=== PATIENT | female | born 1955 | race African-American/Black ===

== ENCOUNTER 2017-06-18 16:18 | Emergency (ER) | payer MEDICAID, OTHER ==
[~2017-06-18] VITALS: Ht 167.6 cm; Wt 65.8 kg
[~2017-06-18 16:18] MED LIST: LISINOPRIL10 MG ORAL; OMEPRAZOLE20 M3 ORAL; PRAVASTATIN SOD20 M1 PO; TACTINAL500 M1 PO
[2017-06-18] MEDS ORDERED: LOSARTAN POTASS25 MG ORAL (16:31)
[2017-06-18] MEDS ORDERED: DICLOFENAC SODI75 MG ORAL (16:31)
[2017-06-18] MEDS ORDERED: BACLOFEN10 MG ORAL (16:31)
[2017-06-18] MEDS ORDERED: ASPIR 8181 MG ORAL (16:31)
[2017-06-18 17:08] LABS: BASOPHILS % (AUTO) 1.4 % (0.0-2.0); EOSINOPHILS % (AUTO) 0.5 % (0.0-3.0); LYMPHOCYTES % (AUTO) 20.9 % (20.0-45.0); MEAN CORPUSCULAR HEMOGLOBIN 25.7 PG (27.0-31.0); MEAN CORPUSCULAR HGB CONC 30.7 G/DL (32.0-36.0); MEAN CORPUSCULAR VOLUME 84 FL (80-99); MEAN PLATELET VOLUME 6.2 FL (6.5-10.1); MONOCYTES % (AUTO) 8.2 % (1.0-10.0); PLATELET COUNT 267 K/UL (150-450); RED CELL DISTRIBUTION WIDTH 13.7 % (11.6-14.8); WHITE BLOOD COUNT 4.6 K/UL (4.8-10.8)
--- NOTE | 2017-06-18 17:21 | Emergency Room Report ---
History of Present Illness General Chief Complaint: Chest Pain Source: Patient Present Illness HPI [id number] walk-in with 1 month of chest pain Described as intermittent sharp pain Also under a lot of stress from 's recent passing Loves "spicy food" and drinks decaf coffee daily Has omeprazole for "heartfburn" Was told by PMD she has "a large heart." has paperwork for her to get outpatient EKG Compliant with statin, daily ASA, HTN med Exercises a lot - "runs, bikes, yoga" every day. Considers herself very healthy Allergies: Coded Allergies: HYDROMORPHONE (Verified Allergy, Unknown, 01/30/09) Patient History Past Medical History: other - HTN, HLD, acid r eflux Past Surgical History: other - Multiple "breast" surgeries Pertinent Family History: none Social History: Denies: alcohol use, drug use, smoking Now: No Immunizations: UTD Reviewed Nursing Documentation: PMH: Agreed, PSxH: Agreed Nursing Documentation-PMH Hx Cardiac Problems: Yes Hx Hypertension: Yes Hx Cerebrovascular Accident: No - RA Review of Systems All Other Systems: negative except mentioned in HPI Physical Exam Vital Signs Date Time Temp Pulse Resp B/P Pulse Ox O2 Delivery O2 Flow Rate FiO2 06/18/17 16:21 98.1 76 20 134/77 98 Room Air Sp02 EP Interpretation: reviewed, normal General Appearance: normal inspection, well appearing, no apparent distress, alert, GCS 15, non-toxic Head: normocephalic, atraumatic Eyes: bilateral eye EOMI, bilateral eye PERRL ENT: normal ENT inspection, hearing grossly normal, normal voice Neck: normal inspection, full range of motion, supple, no bony tend Respiratory: normal inspection, lungs clear, normal breath sounds, no respiratory distress, no retraction, no wheezing Cardiovascular #1: regular rate, rhythm, no edema Gastrointestinal: normal inspection, normal bowel sounds, non tender, soft, no guarding, no hernia Genitourinary: no CVA tenderness Musculoskeletal: normal inspection, back normal, normal range of motion, Linsey' s Sign negative Neurologic: normal inspection, alert, oriented x3, responsive, barrel header III-XII nml as tested, motor strength/tone normal, speech normal Psychiatric: normal inspection, judgement/insight normal, mood/affect normal Skin: normal inspection, normal color, no rash Lymphatic: normal inspection Medical Decision Making Diagnostic Impression: Primary Impression: Chest pain Qualified Codes: R07.9 - Chest pain, unspecified Additional Impressions: IDANIA (acute kidney injury) Rhabdomyolysis Qualified Codes: M62.82 - Rhabdomyolysis ER Course Chest pain for 1 month VSS. Afebrile NSR, no ischemia Labs: No leuks. H&h stable. Troponin 0. CXR: no obvious cardiomegaly Mild IDANIA and mild rhabdo. IVF NS given Low suspicion for ACS given 1 month symptoms, known history of heartburn/reflux , no asthma/COPD, no wheezing on exam and heartburn more likely Dx at this time Advised PMD followup for Echo EKG Diagnostic Results Rate: normal Rhythm: NSR ST Segments: no acute changes ASA given to the pt in ED: No Rhythm Strip Diag. Results EP Interpretation: yes Rate: 73 Rhythm: NSR, no PVC's, no ectopy Chest X-Ray Diagnostic Results Chest X-Ray Diagnostic Results : Chest X-Ray Ordered: Yes # of Views/Limited/Complete: 1 View Indication: Chest Pain EP Interpretation: Yes Interpretation: no consolidation, no effusion, no pneumothorax, no acute cardiopulmonary disease Impression: No acute disease Interpreting ER Provider: Dr Evy Rosenberg MD Last Vital Signs Date Time Temp Pulse Resp B/P Pulse Ox O2 Delivery O2 Flow Rate FiO2 06/18/17 16:30 74 16 Room Air 06/18/17 16:21 98.1 134/77 98 Status: improved Disposition: HOME, SELF-CARE EVY ROSENBERG M.D. Jun 18, 2017 17:21
[2017-06-18 17:51] LABS: ALANINE AMINOTRANSFERASE 21 U/L (3-33); ALBUMIN/GLOBULIN RATIO 2.5 (1.0-2.7); ANION GAP 13 (5-15); ASPARTATE AMINO TRANSFERASE 37 U/L (5-40); CALCIUM 9.4 mg/dL (8.6-10.2); CARBON DIOXIDE 26 mEQ/L (20-30); CHLORIDE 102 mEQ/L (98-107); CREATININE 1.1 mg/dL (0.5-0.9); GLOMERULAR FILTRATION RATE > 60 mL/min (>60); HEMOLYSIS 1; POTASSIUM 4.2 mEQ/L (3.4-4.9); SODIUM 141 mEQ/L (135-145); TOTAL PROTEIN 7.9 g/dL (6.6-8.7)
[2017-06-18 17:56] LABS: TROPONIN I < 0.30 ng/mL (<=0.30)
[2017-06-18 18:01] LABS: CKMB 2.8 ng/mL (< 3.8)
[2017-06-18 18:11] VITALS: BP 131/84
[2017-06-18] MEDS ORDERED: PEPCID20 MG ORAL (18:23)
[2017-06-18 19:45] VITALS: BP 130/85
--- NOTE | 2017-06-19 10:33 | Diagnostic Imaging Report ---
Indication: SOB Technique: One view of the chest Comparison: 05/17/2011 Findings: There is persistent elevation right hemidiaphragm. Bilateral costophrenic angle blunting appears similar to previous study, likely chronic but small effusion not excluded. The heart size is normal. Impression: Probably chronic right pleural thickening, small effusion not excludable. No acute process otherwise
--- NOTE | 2017-06-21 17:19 | Cardiology Report ---
APPROVED REPORT EKG Measurement Heart [id number] Normal sinus rhythm Possible Left atrial enlargement Borderline ECG
== END 2017-06-18 19:45 | disposition home or self-care (01) ==
LOC: EMR 17:32
DX: R07.9 Chest pain, unspecified (principal); N17.9 Acute kidney failure, unspecified; M62.82 Rhabdomyolysis; I10 Essential (primary) hypertension; E78.5 Hyperlipidemia, unspecified; K21.9 Gastro-esophageal reflux disease without esophagitis; Z79.82 Long term (current) use of aspirin; Z79.899 Other long term (current) drug therapy
CPT/HCPCS: 36415; 71010; 80053; 82550; 82553; 83880; 84484; 85025; 93005; 96360; 96374; 99284

== ENCOUNTER 2018-02-12 18:00 | Emergency (ER) | payer OTHER ==
[~2018-02-12] VITALS: Ht 167.6 cm; Wt 66.7 kg
[~2018-02-12 18:00] MED LIST changes: +ASPIR 8181 MG ORAL; +BACLOFEN10 MG ORAL; +DICLOFENAC SODI75 MG ORAL; +LOSARTAN POTASS25 MG ORAL; +PEPCID20 MG ORAL
[2018-02-12 18:42] VITALS: BP 109/73
--- NOTE | 2018-02-12 18:44 | Emergency Room Report ---
History of Present Illness General Chief Complaint: Lower Back Pain or Injury Source: Patient Present Illness HPI 63-year-old female p/w back pain for 4 days. Patient states pain started when she slipped and fell in her bathroom floor and hit her back on the doorknob. Pain is localized to bilateral lower back, sharp in nature. Movement worsens pain. There are no alleviating factors. Patient went to an outside hospital does not know the name and they took x-rays and they discharged her with pain medication Denies lower extremity weakness/numbness, no bowel/bladder retention or incontinence, saddle anesthesia. Denies fever, chills, abdominal pain, n/v, dysuria/hematuria. Allergies: Coded Allergies: HYDROMORPHONE (Verified Allergy, Unknown, 01/30/09) Patient History Past Medical History: see triage record Past Surgical History: none Pertinent Family History: none Reviewed Nursing Documentation: PMH: Agreed; PSxH: Agreed Nursing Documentation-PMH Past Medical History: No History, Except For Hx Cardiac Problems: Yes Hx Hypertension: Yes Hx Cerebrovascular Accident: No - RA Review of Systems All Other Systems: negative except mentioned in HPI Physical Exam Vital Signs Date Time Temp Pulse Resp B/P (MAP) Pulse Ox O2 Delivery O2 Flow Rate FiO2 02/12/18 18:10 97.9 90 22 109/73 97 Room Air 97.9 Sp02 EP Interpretation: reviewed, normal General Appearance: alert, GCS 15, non-toxic, moderate distress Head: normocephalic, atraumatic Eyes: bilateral eye normal inspection, bilateral eye PERRL, bilateral eye EOMI ENT: normal ENT inspection, normal pharynx, normal voice, moist mucus membranes Neck: normal inspection, full range of motion, supple Respiratory: normal inspection, lungs clear, normal breath sounds, no respiratory distress, no retraction, no wheezing, speaking full sentences, chest symmetrical Cardiovascular #1: normal inspection, regular rate, rhythm, normal capillary refill Cardiovascular #2: 2+ radial (R), 2+ radial (L) Gastrointestinal: normal inspection, non tender, soft, non-distended, no guarding Musculoskeletal: other - No midline tenderness, paraspinal midthoracic and lumbar tenderness, no step-offs, full range of motion all extremities. Patient has a brace that she borrowed from her friend around her waist Neurologic: normal inspection, alert, oriented x3, responsive, motor strength/ tone normal, sensory intact, normal gait, speech normal Psychiatric: normal inspection, judgement/insight normal, memory normal Skin: normal inspection, normal color, no rash, warm/dry, well hydrated, normal turgor Medical Decision Making Diagnostic Impression: Primary Impression: Low back pain ER Course 63-year-old female p/w back pain after fall 4 days ago DDX: Likely musculoskeletal back pain vs. muscular strain vs. sciatica Versus fracture Serious diagnoses such as cord compression, cauda equina is unlikely in this patient given the clinical scenario and absence of neurological symptoms or findings. Patient appears nontoxic. Plan: Motrin, robaxin CT of T and L-spine ER course: Patient has remained nontoxic appearing and ambulatory in the ED. Pain improved w/ medications Disposition: Patient will be discharged to home Strict precautions discussed with patient on when to emergently return to the ED which includes severe/worsening back pain, leg weakness/numbness, urinary retention/incontinence, fever or chills, which may indicate severe illness. Patient is to follow up with their PMD within 5 days. Patient agrees with plan. Please note that this Emergency Department Report was dictated using [employer] organizational development technology software, occasionally this can lead to erroneous entry secondary to interpretation by the dictation equipment. CT/MRI/US Diagnostic Results CT/MRI/US Diagnostic Results : Imaging Test Ordered: CT L AND T SPINE Impression CT L SPINE: No acute fracture or malalignment. Advanced degenerative changes of the lower lumbar spine. CT T SPINE: No acute fracture or malalignment. Mild degenerative changes. Nonspecific right pleural nodularity. Last Vital Signs Date Time Temp Pulse Resp B/P (MAP) Pulse Ox O2 Delivery O2 Flow Rate FiO2 02/12/18 18:10 97.9 90 22 109/73 97 Room Air 97.9 Disposition: HOME, SELF-CARE Condition: Improved Scripts Ibuprofen* (MOTRIN*) 600 Mg Tablet 600 MG ORAL Q8H PRN for For Pain, #30 TAB 0 Refills Prov: Ayaka Hadley M.D. 02/12/18 Methocarbamol* (ROBAXIN-750*) 750 Mg Tablet 750 MG PO QID, #28 TAB 0 Refills Prov: Ayaka Hadley M.D. 02/12/18 Ayaka Hadley M.D. Feb 12, 2018 18:43
[2018-02-12] MEDS ORDERED: Methocarbamol 750mg tab ORAL ONE (18:45)
[2018-02-12] MEDS ORDERED: Ketorolac 30mg Inj IM ONE (18:45)
[2018-02-12 19:05] VITALS: BP 112/80
[2018-02-12] MEDS ORDERED: ROBAXIN-750750 MG PO (19:52)
[2018-02-12] MEDS ORDERED: IBUPROFEN600 MG ORAL (19:52)
[2018-02-12 20:00] VITALS: BP 120/78
[2018-02-12 20:15] VITALS: BP 120/78
--- NOTE | 2018-02-13 08:36 | Diagnostic Imaging Report ---
Indication: Pain status post fall Technique: CT lumbar spine was performed utilizing automated exposure control without intravenous contrast material. Axial and sagittal and coronal images were generated. CT dose: Total DLP 429.03 mGycm; CTDI vol 13.01 mGy Comparison: None Findings: There are 5 nonrib-bearing lumbar-type vertebral bodies. There is no evidence of acute fracture or traumatic malalignment. There are multilevel degenerative changes of the lumbar spine manifested by disc space narrowing, endplate sclerosis/cystic change, facet arthropathy and productive change/disc osteophyte complexes. These findings are most pronounced at L3-L4 and L4-L5. There is a degree of associated central canal stenosis and foraminal narrowing at these levels. Please note that the cord and nerve roots are better evaluated on MRI, which can be obtained as clinically indicated for further evaluation. Abdominal aorta is normal in caliber with mild atherosclerotic calcification. Multiple surgical clips are noted in the right iliac region. Correlation with surgical history is recommended. IMPRESSION: No evidence of acute fracture or traumatic malalignment. Degenerative change of the lumbar spine most pronounced at L3-L4 and L4-L5. MRI of the lumbar spine recommended as clinically indicated for better evaluation. Additional findings as above. This corresponds with the statrad preliminary report. The CT scanner at [facility] is accredited by the [employer] and the scans are performed using protocols designed to limit radiation exposure to as low as reasonably achievable to attain images of sufficient resolution adequate for diagnostic evaluation.
--- NOTE | 2018-02-13 08:42 | Diagnostic Imaging Report ---
Indication: Pain status post fall Technique: CT thoracic spine was performed utilizing automated exposure control without intravenous contrast material. Axial and sagittal and coronal images were generated. CT dose: Total DLP 681.12 mGycm; CTDI vol 18.11 mGy Comparison: None Findings: There is no evidence of acute fracture or traumatic malalignment. There are mild multilevel degenerative changes of the thoracic spine manifested by disc space narrowing, endplate subchondral sclerosis/cystic change and productive change. Visualized aorta appears normal in caliber. Question cholelithiasis, partially visualized. There is nonspecific pleural nodularity on the right. IMPRESSION: Mild multilevel degenerative change of the thoracic spine. No evidence of acute fracture or traumatic malalignment. Nonspecific right pleural nodularity. Clinical correlation/follow-up exam recommended. Question possible cholelithiasis. The CT scanner at [facility] is accredited by the [employer] and the scans are performed using protocols designed to limit radiation exposure to as low as reasonably achievable to attain images of sufficient resolution adequate for diagnostic evaluation.
== END 2018-02-12 20:15 | disposition home or self-care (01) ==
LOC: EMR 18:53
DX: M54.5 Low back pain (principal); W01.198A Fall on same level from slipping, tripping and stumbling with subsequent striking against other object, initial encounter; Y92.002 Bathroom of unspecified non-institutional (private) residence as the place of occurrence of the external cause; I10 Essential (primary) hypertension
CPT/HCPCS: 72128; 72131; 96372; 99284; J1885

== ENCOUNTER 2018-02-27 16:57 | Emergency (ER) | payer OTHER ==
[~2018-02-27] VITALS: Ht 167.6 cm; Wt 66.2 kg
[~2018-02-27 16:57] MED LIST changes: +IBUPROFEN600 MG ORAL; +ROBAXIN-750750 MG PO
[2018-02-27 17:43] VITALS: BP 127/71
[2018-02-27] MEDS ORDERED: Lidocaine 1% Plain 30 ml INJ ONE (19:00)
[2018-02-27] MEDS ORDERED: IBUPROFEN600 MG ORAL (19:43)
[2018-02-27 19:55] VITALS: BP 124/83
[2018-02-27 19:57] VITALS: BP 124/83
--- NOTE | 2018-02-28 11:14 | Diagnostic Imaging Report ---
Indication: Pain Knee pain/trauma 3 views of the right knee were obtained. Findings: No acute fracture, malalignment, or joint effusion are identified. Joint space is relatively well-maintained. Impression: Negative for acute findings.
--- NOTE | 2018-02-28 11:14 | Diagnostic Imaging Report ---
Indication: Pain 3 views of the left knee were obtained. Findings: No acute fracture, malalignment, or joint effusion are identified. Joint space is relatively well-maintained. Impression: Negative for acute injury
--- NOTE | 2018-02-28 11:15 | Diagnostic Imaging Report ---
Indication: Pain right ankle ankle pain/trauma Comparison: None Findings: 3 views of the right ankle obtained. No acute fracture, malalignment, periostitis, or osteochondral defects are identified. Soft tissues are unremarkable. There is a tiny plantar calcaneal tuberosity enthesophyte. Impression: Negative examination
--- NOTE | 2018-02-28 11:16 | Diagnostic Imaging Report ---
Indication: pain Right hand pain Findings: 3 views of the right hand were obtained. There is no acute fracture identified. There is an old fracture of the fifth metacarpal and subluxed fifth MCP joint. The lunate the orientation is also abnormal and has a slightly volar tilt. IMPRESSION: No acute injury identified.
--- NOTE | 2018-03-02 21:47 | Emergency Room Report ---
History of Present Illness General Chief Complaint: Pain Source: Patient Present Illness HPI 63-year-old female presents ED for evaluation. Patient states that approximately 3 weeks ago she had a chemical trip and fall. Was seen at another hospital and had x-rays done which were normal. States that she was then seen here recently with persistent pain. Had CTs which were negative. Patient continues to have pain in her bilateral knees and ankles. Pain is throbbing, 7 out of 10, nonradiating. Also complaining of pain to her right hand. No other aggravating relieving factors. Denies any other associated symptoms Allergies: Coded Allergies: HYDROMORPHONE (Verified Allergy, Unknown, 01/30/09) Patient History Past Medical History: HTN Past Surgical History: none Pertinent Family History: none Social History: Denies: smoking, alcohol use, drug use Last Menstrual Period: post Now: No Immunizations: UTD Reviewed Nursing Documentation: PMH: Agreed; PSxH: Agreed Nursing Documentation-PMH Hx Cardiac Problems: Yes Hx Hypertension: Yes Hx Cerebrovascular Accident: No Review of Systems All Other Systems: negative except mentioned in HPI Physical Exam Vital Signs Date Time Temp Pulse Resp B/P (MAP) Pulse Ox O2 Delivery O2 Flow Rate FiO2 02/27/18 17:12 74 12 132/74 99 Room Air 02/27/18 17:43 98.0 98.0 Sp02 EP Interpretation: reviewed, normal General Appearance: no apparent distress, alert, GCS 15, non-toxic Head: normocephalic, atraumatic Eyes: bilateral eye normal inspection, bilateral eye PERRL ENT: hearing grossly normal, normal pharynx, no angioedema, normal voice Neck: full range of motion, supple/symm/no masses Respiratory: chest non-tender, lungs clear, normal breath sounds, speaking full sentences Cardiovascular #1: regular rate, rhythm, no edema Cardiovascular #2: 2+ carotid (R), 2+ carotid (L), 2+ radial (R), 2+ radial (L) , 2+ dorsalis pedis (R), 2+ dorsalis pedis (L) Gastrointestinal: normal bowel sounds, non tender, soft, non-distended, no guarding, no rebound Rectal: deferred Genitourinary: normal inspection, no CVA tenderness Musculoskeletal: back normal, gait/station normal, normal range of motion, tender - bilateral knee, R ankle, R hand Neurologic: alert, oriented x3, responsive, motor strength/tone normal, sensory intact, speech normal Psychiatric: judgement/insight normal, memory normal, mood/affect normal, no suicidal/homicidal ideation Reflexes: 3+ bicep (R), 3+ bicep (L), 3+ tricep (R), 3+ tricep (L), 3+ knee (R) , 3+ knee (L) Skin: normal color, no rash, warm/dry, well hydrated Lymphatic: no adenopathy Medical Decision Making Diagnostic Impression: Primary Impression: Finger dislocation Qualified Codes: S63.259A - Unspecified dislocation of unspecified finger, initial encounter ER Course Hospital Course 63-year-old female presents ED complaining of bilateral knee pain, right ankle pain and right hand pain status post trip and fall on 02/08 Differential diagnoses include: Fracture, dislocation, sprain, contusion Clinical course Patient placed on stretcher. After initial history and physical, I ordered pain medications and Xrays X-rays of bilateral knees and right ankle unremarkable. Right hand x-ray shows metacarpal subluxation Patient states it has been like that since her fall on 02/08. I asked the patient whether her hand was ever evaluated previously and she cannot recall. I attempted to reduce the finger using a digital block however given the chronicity of symptoms I am unable to reduce the finger given referral to hand specialists Diagnosis - finger dislocation Stable and discharged to home. apply ice, keep elevated. weight bear as tolerated. Followup with PMD/hand. Return to ED if symptoms recur or worsen Other X-Ray Diagnostic Results Other X-Ray Diagnostic Results #1: X-Ray ordered: Right knee # of Views/Limited Vs Complete: 3 View Indication: Pain EP Interpretation: Yes Interpretation: no dislocation, no soft tissue swelling, no fractures Impression: No acute disease Electronically Signed by: Electronically signed by Walter Granados MD Other X-Ray Diagnostic Results #2: X-Ray ordered: Left knee # of Views/Limited Vs Complete: 3 View Indication: Pain EP Interpretation: Yes Interpretation: no dislocation, no soft tissue swelling, no fractures Impression: No acute disease Electronically Signed by: Electronically signed by Walter Granados MD Other X-Ray Diagnostic Results #3: X-Ray ordered: right ankle # of Views/Limited Vs Complete: 3 View Indication: Pain EP Interpretation: Yes Interpretation: no dislocation, no fractures Impression: No acute disease Electronically Signed by: Electronically signed by Walter Granados MD Other X-Ray Diagnostic Results #4: X-Ray ordered: Right hand # of Views/Limited Vs Complete: 3 View Indication: Pain EP Interpretation: Yes Interpretation: no soft tissue swelling, no fractures, other - sublux 5th metacarpal Impression: Other - subluxation Electronically Signed by: Electronically signed by aWlter Granados MD Last Vital Signs Date Time Temp Pulse Resp B/P (MAP) Pulse Ox O2 Delivery O2 Flow Rate FiO2 02/27/18 19:57 98.3 73 18 124/83 98 Room Air 98.3 Status: improved Disposition: HOME, SELF-CARE Condition: Stable Scripts Ibuprofen* (MOTRIN*) 600 Mg Tablet 600 MG ORAL Q8H PRN for For Pain, #30 TAB 0 Refills Prov: Walter Granados MD 02/27/18 Referrals: BRENNA VARGHESE PERRY M.D. Patient Instructions: Finger or Thumb Dislocation, [id number] Walter Granados MD March 02, 2018 21:47
== END 2018-02-27 19:57 | disposition home or self-care (01) ==
LOC: EMR 17:33
DX: S63.259A Unspecified dislocation of unspecified finger, initial encounter (principal); W01.0XXA Fall on same level from slipping, tripping and stumbling without subsequent striking against object, initial encounter; Y92.9 Unspecified place or not applicable; M25.562 Pain in left knee; M25.561 Pain in right knee; I10 Essential (primary) hypertension; Z88.8 Allergy status to other drugs, medicaments and biological substances
CPT/HCPCS: 73130; 73562; 73610; 99284; J2001